=== PATIENT | female | born 1945 | race Asian ===

== ENCOUNTER → 2024-11-08 | Outpatient (CLI) | payer OTHER, MEDICAID, SELFPAY ==
[2024-11-08 11:35] LABS: Glucose Estimated Average 143 mg/dL (80-131); Hemoglobin A1C 6.6 % Hgb (4.8-6.0)
[2024-11-08 11:36] LABS: Creatinine MALB Rnd Ur 83 mg/dL (30-125); Microalbumin Creat Ratio 33 mg/gCrea (<30); Microalbumin, Random Urine 27 mg/L (0-300)
[2024-11-08 11:43] LABS: Anion Gap 9 (7-16); BUN/Creatinine Ratio 13 Ratio (12-20); Blood Urea Nitrogen 19 mg/dL (9-23); Calcium 9.9 mg/dL (8.3-10.6); Carbon Dioxide 25.7 mMol/L (20.0-31.0); Chloride 107 mMol/L (98-107); Creatinine (Component) 1.5 mg/dL (0.6-1.3); Glucose 110 mg/dL (74-106); Osmolality,Calculated 286 (275-295); Potassium 4.8 mMol/L (3.4-5.1); Sodium 142 mMol/L (136-145); eGFR 35 See Note
== END | disposition home or self-care (01) ==
PROVIDERS: PCP Family Medicine; Referring Provider Family Medicine; Visit Provider Family Medicine
DX: E11.22 Type 2 diabetes mellitus with diabetic chronic kidney disease (principal); N18.32 Chronic kidney disease, stage 3b
CPT/HCPCS: 36415; 80048; 82043; 82570; 83036

== ENCOUNTER → 2025-04-05 | Outpatient (CLI) | payer MEDICARE, MEDICAID, SELFPAY ==
[2025-04-05 10:36] LABS: Glucose Estimated Average 140 mg/dL (80-131); Hemoglobin A1C 6.5 % Hgb (4.8-6.0)
[2025-04-05 10:41] LABS: Anion Gap 11 (7-16); BUN/Creatinine Ratio 18 Ratio (12-20); Blood Urea Nitrogen 29 mg/dL (9-23); Calcium 9.1 mg/dL (8.3-10.6); Carbon Dioxide 22.2 mMol/L (20.0-31.0); Chloride 111 mMol/L (98-107); Creatinine (Component) 1.6 mg/dL (0.6-1.3); Glucose 111 mg/dL (74-106); Osmolality,Calculated 293 (275-295); Potassium 4.5 mMol/L (3.4-5.1); Sodium 144 mMol/L (136-145); eGFR 32 See Note
== END | disposition home or self-care (01) ==
LOC: COPL 09:07
PROVIDERS: PCP Family Medicine; Referring Provider Family Medicine; Visit Provider Family Medicine
DX: E11.22 Type 2 diabetes mellitus with diabetic chronic kidney disease (principal); N18.32 Chronic kidney disease, stage 3b; E11.65 Type 2 diabetes mellitus with hyperglycemia
CPT/HCPCS: 36415; 80048; 83036

== ENCOUNTER → 2025-05-18 | Outpatient (CLI) | payer MEDICARE, MEDICAID, SELFPAY ==
--- NOTE | 2025-05-18 08:00 | XR_ITS ---
Examination: Screening digital mammography, bilateral Computer aided detection 3-D breast Tomosynthesis, bilateral Date and time of exam: May 18, 2025 0809 hours Compared to mammograms dating to October 04, 2007 Indication: Screening Technique: Nonmagnified MLO, CC views of the breasts to been obtained, reconstructed from 3-D Tomosynthesis images. R2 computer aided detection program utilized for evaluation of suspicious masses and/or abnormal calcifications. 3-D Tomosynthesis images obtained. Findings: The breasts are heterogeneously dense, which may obscure small masses Benign calcifications 5 mm nodule upper outer right breast Impression: BI-RADS Category 0: Incomplete: Need additional imaging evaluation Recommend follow-up spot tomographic views of partially circumscribed 5 mm nodule upper outer right breast as well as right breast sonography to complete the workup
== END | disposition home or self-care (01) ==
LOC: CDIM 07:48
PROVIDERS: PCP Family Medicine; Referring Provider Family Medicine; Visit Provider Family Medicine
DX: Z12.31 Encounter for screening mammogram for malignant neoplasm of breast (principal); N63.11 Unspecified lump in the right breast, upper outer quadrant
CPT/HCPCS: 77063; 77067

== ENCOUNTER → 2025-05-22 | Outpatient (CLI) | payer MEDICARE, MEDICAID, SELFPAY ==
[2025-05-22 09:24] LABS: OBS Performed By LAB; OBS QC OK? Yes
[2025-05-22 10:27] LABS: Anion Gap 9 (7-16); BUN/Creatinine Ratio 13 Ratio (12-20); Blood Urea Nitrogen 21 mg/dL (9-23); Calcium 9.3 mg/dL (8.3-10.6); Carbon Dioxide 20.3 mMol/L (20.0-31.0); Cardiac Risk Estimate 2.2 RATIO (3.7-5.6); Chloride 113 mMol/L (98-107); Cholesterol 121 mg/dL (132-200); Creatinine (Component) 1.6 mg/dL (0.6-1.3); Glucose 115 mg/dL (74-106); HDL Cholesterol 56 mg/dL (40-60); LDL Cholesterol,Calculated 50 mg/dL (0-130); Osmolality,Calculated 287 (275-295); Potassium 4.4 mMol/L (3.4-5.1); Sodium 142 mMol/L (136-145); Triglycerides 77 mg/dL (30-150); eGFR 32 See Note
[2025-05-22 17:01] LABS: Occult Blood, Stool Negative (Negative); Occult Blood, Stool #2 Negative (Negative); Occult Blood, Stool #3 Negative (Negative)
[2025-05-22 17:02] LABS: OBS Developer Lot # 1-24 551749
== END | disposition home or self-care (01) ==
PROVIDERS: PCP Family Medicine; Referring Provider Family Medicine; Visit Provider Family Medicine
DX: Z00.00 Encounter for general adult medical examination without abnormal findings (principal); E11.21 Type 2 diabetes mellitus with diabetic nephropathy; E11.65 Type 2 diabetes mellitus with hyperglycemia
CPT/HCPCS: 36415; 80048; 80061; 82270

== ENCOUNTER → 2025-05-26 | Outpatient (CLI) | payer MEDICARE, MEDICAID, SELFPAY ==
--- NOTE | 2025-05-26 12:20 | XR_ITS ---
Examination: Bone densitometry Date and time of exam:May 26, 2025 1355 hours INDICATIONS: Menopause age 48 vitamin D 5 years Technique: Lumbar spine and hip total bone mineralization values of an calculated. Peak reference and age match control results have been displayed. Findings: Lumbar spine total bone mineralization is1.234 gm/cm2. This is 1.7 standard deviations above peak reference. This is 4.5 standard deviations above age-matched controls. Hip total bone mineralization is 0.891 gm/cm2 This is 0.4 standard deviations below peak reference. This is 1.8 standard deviations above age-matched controls Impression: There is normal mineralization based on lumbar spine measurements. There is normal mineralization based on hip measurements Lumbar mineralization is decreased 1.7% compared with June 28, 2019 Hip mineralization is increased 1.9% compared with June 28, 2019
== END | disposition home or self-care (01) ==
LOC: CDIM 13:16
PROVIDERS: PCP Family Medicine; Referring Provider Family Medicine; Visit Provider Family Medicine
DX: M81.0 Age-related osteoporosis without current pathological fracture (principal)
CPT/HCPCS: 77080

== ENCOUNTER → 2025-06-19 | Outpatient (CLI) | payer MEDICARE, MEDICAID, SELFPAY ==
--- NOTE | 2025-06-19 09:30 | XR_ITS ---
Examination: Breast ultrasound, unilateral, right complete Date and time of exam: June 19, 2025 0958 hours INDICATIONS: Mammogram May 18, 2025 5 mm nodule upper outer right breast Technique: Real-time bhatti scale ultrasonographic imaging performed right breast including all 4 quadrants as well as nipple retroareolar and axillary region. Findings: No cystic or solid mass IMPRESSION: BI-RADS Category 1: Negative study
--- NOTE | 2025-06-19 10:00 | XR_ITS ---
Examination: Diagnostic digital mammography, unilateral, right Computer aided detection 3-D breast Tomosynthesis, unilateral Date and time of exam: June 19, 2025 1009 hours INDICATIONS: Mammogram May 18, 2025 5 mm nodule upper outer right breast Technique: Nonmagnified MLO, CC views of the right breast have been obtained, reconstructed from 3-D Tomosynthesis images. R2 computer aided detection program utilized for evaluation of suspicious masses and/or abnormal calcifications. 3-D Tomosynthesis images obtained. Findings: The breast is heterogeneously dense, which may obscure small masses Spot compression films do not confirm suspicious nodule Impression: BI-RADS category 2: Benign findings Return to yearly follow-up mammography
== END | disposition home or self-care (01) ==
LOC: CDIM 09:41
PROVIDERS: Referring Provider Family Medicine; Visit Provider Family Medicine
DX: R92.321 Mammographic fibroglandular density, right breast (principal)
CPT/HCPCS: 76641; 77061; 77065; G0279

== ENCOUNTER → 2025-08-24 | Outpatient (CLI) | payer MEDICARE, MEDICAID, SELFPAY ==
[2025-08-24 10:37] LABS: Creatinine MALB Rnd Ur 64 mg/dL (30-125); Microalbumin Creat Ratio 14 mg/gCrea (<30); Microalbumin, Random Urine 9 mg/L (0-300)
[2025-08-24 10:37] LABS: Glucose Estimated Average 137 mg/dL (80-131); Hemoglobin A1C 6.4 % Hgb (4.8-6.0)
[2025-08-24 10:38] LABS: Anion Gap 10 (7-16); BUN/Creatinine Ratio 12 Ratio (12-20); Blood Urea Nitrogen 17 mg/dL (9-23); Calcium 9.5 mg/dL (8.3-10.6); Carbon Dioxide 25.5 mMol/L (20.0-31.0); Chloride 108 mMol/L (98-107); Creatinine (Component) 1.4 mg/dL (0.6-1.3); Glucose 102 mg/dL (74-106); Osmolality,Calculated 286 (275-295); Potassium 4.4 mMol/L (3.4-5.1); Sodium 143 mMol/L (136-145); eGFR 38 See Note
== END | disposition home or self-care (01) ==
LOC: COPL 09:09
PROVIDERS: PCP Family Medicine; Referring Provider Family Medicine; Visit Provider Family Medicine
DX: E11.21 Type 2 diabetes mellitus with diabetic nephropathy (principal)
CPT/HCPCS: 36415; 80048; 82043; 82570; 83036

== ENCOUNTER → 2025-09-21 | Outpatient (CLI) | payer MEDICARE, MEDICAID, SELFPAY ==
--- NOTE | 2025-09-21 15:29 | XR_ITS ---
EXAMINATION: Lumbar spine 7 views TECHNIQUE: AP, lateral, standing lateral flexion, standing lateral extension, coned lower lateral lumbar spine, RPO and LPO 7 views Date and time: October 08, 2025, 1603 hours INDICATIONS: Low back pain 2 months. FINDINGS: Significant osteopenia Thoracolumbar levoscoliosis 8 degrees lumbar dextroscoliosis lower lumbar spine 8 degrees Moderate diffuse facet arthropathy Grade 1 anterolisthesis L3 on L4, L4 on L5, soft tissue disc bulge at least 10 mm L4-L5 No lumbar fracture Diffuse moderate to advanced lumbar degenerative disc disease most prominent at L3-L4, L4-L5 IMPRESSION: Diffuse moderate to advanced lumbar degenerative disc disease with spinal stenosis Marked decrease range of motion between flexion and extension Soft tissue disc bulge L4-L5 at least 10 mm
== END | disposition home or self-care (01) ==
LOC: CDIM 15:09
PROVIDERS: PCP Family Medicine; Referring Provider Family Medicine; Visit Provider Family Medicine
DX: M51.360 Other intervertebral disc degeneration, lumbar region with discogenic back pain only (principal)
CPT/HCPCS: 72114